=== PATIENT | female | born 1950 | race Caucasian/White ===

== ENCOUNTER 2020-11-13 12:48 | Emergency (ER) | payer MEDICARE, OTHER, MEDICAID, SELFPAY ==
[2020-11-13 13:34] VITALS: BP 167/64; PULSE 59; RESP 18; TEMP 36.8; O2SAT 98; BMI 37.7
--- NOTE | 2020-11-13 14:32 | HMH.EDUTC ---
[facility] Disposition Clinical Impression: Viral syndrome, Gastroenteritis, Exposure to COVID-19 virus Disposition: Home, Self-Care Condition on Discharge: Good Instructions: DI for Viral Syndrome, DI for COVID-19 (Suspected or Confirmed ), Preventing the Spread of Coronavirus Discharge Instructions Additional Instructions: Drink plenty of fluids. Take tylenol or ibuprofen for pain or fever. Take the medications as directed. Follow up with your regular doctor. GO TO THE ER FOR ANY WORSENING SYMPTOMS Quarantine until you know the results of your covid-19 test. If it is positive, the health department should call you and give you further instructions about your length of Quarantine and other things. Notify your school or workplace of your results and follow their instructions regarding return to work/school. Prescriptions: Ondansetron [Zofran 4mg ODT] 4 mg PO DAILYP PRN #12 tab PRN Reason: Nausea Transmission Status: Received by [facility] Referrals: Shayy Bess APRN [Primary Care Provider] - Time of Disposition: 15:11 Medical Decision Making - Medical Records Medical records reviewed: No: I reviewed the patient's medical records. - Darell Inquiry Pt receiving controlled substance: No Vital Signs: 11/13/20 13:34 11/13/20 15:20 Temperature 98.3 F 98.3 F Temperature Source Oral Pulse Rate 59 L Pulse Rate [Right Radial] 59 L Respiratory Rate 18 18 Blood Pressure 167/64 H Blood Pressure [Right Arm] 167/64 H Blood Pressure Mean [Right Arm] 98 Blood Pressure Source [Right Arm] Automatic Cuff Blood Pressure Position [Right Arm] Sitting 02 Sat by Pulse Oximetry 98 Oxygen Delivery Method Room Air - Lab Data Lab Results 11/13/20 21:07: Strep Scn Rapid Clinic Negative Orders (Tests/Meds): ORDERS Category Date Time Status Strep Screen Confirmation Stat Micro 11/13/20 21:07 Received [facility] HPI - General Stated complaint: Vomiting; dizziness Time Seen by Provider: 11/13/20 13:45 Mode of Arrival: Ambulatory Source of Information: Patient Limitations: No Limitations Description of Symptoms (Recalled from Triage Doc. by RN): C/O dizziness and vomiting since this am HEENT Symptoms (Recalled from RN notes): No Resp Symptoms (Recalled from RN notes): No Skin Symptoms (Recalled from RN notes): No MS Symptoms (Recalled from RN notes): No Functional Status (Recalled from RN notes): n/a - History of Present Illness Provider Complaint: She states that since this morning, she has had nausea and she has felt bad. She has vomited twice. She denies diarrhea, but she has had some abdominal cramping that feels like diarrhea might be ready to start. She denies any fever/chest pain/body aches. She denies any known sick contacts. She has been vaccinated against covid-19. - Related Data Previous Rx's Medication Instructions Recorded Ondansetron [Zofran 4mg ODT] 4 mg PO DAILYP PRN #12 tab 11/13/20 Allergies Allergy/AdvReac Type Severity Reaction Status Date / Time No Known Allergies Allergy Verified 11/13/20 13:38 - Worker's Comp Is this a Worker's Comp case?: No [facility] History - Hepatitis A Screen Drug use history?: No High risk sexual behaviors?: No History of sexually transmitted infection?: No Currently employed?: No Childcare worker?: No Do you have indoor plumbing?: Yes Do you have electricity?: Yes Attestation statement:: This patient has been screened for Hepatitis A risk factors. I have reviewed the patient's past medical history: Yes ROS Obtained: Yes All systems reviewed & no additional complaints - Constitutional Constitutional: Reports as per HPI - Eyes Eyes: Denies eye discharge - ENT Ears, Nose, Mouth, and Throat: Reports as per HPI - Cardiovascular Cardiovascular: Denies chest pain - Respiratory Respiratory: Reports chest congestion, Reports cough, Denies dyspnea, Denies stridor, Denies wheezing Physi
[2020-11-13 15:20] VITALS: BP 167/64; PULSE 59; RESP 18; TEMP 36.8; O2SAT 98
[2020-11-14 10:05] LABS: UTC Strep Screen (Rapid) Negative (Negative)
== END 2020-11-13 15:21 | disposition home or self-care (01) ==
PROVIDERS: Emergency Provider Nurse Practitioner Family; PCP Nurse Practitioner Family
DX: K52.9 Noninfective gastroenteritis and colitis, unspecified (principal); Z20.822 Contact with and (suspected) exposure to COVID-19
CPT/HCPCS: G0463; 87880; 99203; C9803; U0003; U0005

== ENCOUNTER 2024-11-12 15:40 | Outpatient (CLI) | payer MEDICARE, OTHER, SELFPAY ==
--- OUTSIDE RECORDS SUMMARY | 2024-11-13 12:32 | XMS_ITS | Clinical Summary ---
Author Organization Healthcare Address [address] [place] [address] Care Team Providers Care Chemistry Technical Officer Name Role Phone Hoa Cassidy APRN Primary Care Provider [phone] Allergies No known active allergies Medications calcium carbonate (Os-Star) 1250 (500 Ca) MG tablet Take 1 tablet daily 5 Active cholecalciferol (Vitamin D-3) 25 MCG (1000 UT) tablet 4 Active levothyroxine (Synthroid, Levoxyl) 25 MCG tablet TAKE 1 TABLET BY MOUTH EVERY MORNING ON AN EMPTY STOMACH 1 Active rosuvastatin (Crestor) 20 MG tablet 2 Active ciclopirox (Penlac) 8 % solution Apply topically 1 (one) time each day. To affected nails 6 mL 1 4 Active Additional Information Patient not taking.Reported on 05/16/2024 lisinopril 20 MG tablet 4 Active Adalimumab-adbm (Cyltezo, 2 Pen,) 40 MG/0.8ML Auto-injector KitIndications: Seropositive rheumatoid arthritis of multiple sites (CMS/HCC) Inject 40 mg under the skin every 14 (fourteen) days. 2 each 6 5 Active Active Problems Problem Noted Date Diagnosed Date Obesity (BMI 35.0-39.9 without comorbidity) 10/28 Seropositive rheumatoid arthritis of multiple si harleen 08/26/2021 Osteopenia 01/24/2018 Osteoarthritis 01/08/2014 Family History Medical History Relation Name Comments Asthma Other 1 Emphysema Other 2 Kidney failure Other 3 Relation Name Status Comments Other 1 Other 2 Other 3 Social History Tobacco Use Types Packs/Day Years Used Date Smoking Tobacco: Never Smokeless Tobacco: Never Tobacco Cessation:Counseling Given: Not Answered Alcohol Use Standard Drinks/Week Comments No 0 (1 standard drink = 0.6 oz pur e alcohol) PHQ-2 Answer Date Recorded Patient Health Questionnaire-2 Score 0 05/16/2024 PHQ-2A Answer Date Recorded Patient Health Questionnaire-2 Score 0 10/26/2022 Comments No Sex and Gender Information Value Date Recorded Sex Assigned at Not on file Legal Sex Female 7:38 PM EDT Gender Identity Not on file Sexual Orientation Not on file Last Filed Vital Signs Vital Sign Reading Time Taken Comments Blood Pressure 163/78 05/16/2024 9:20 AM EDT Pulse 69 05/16/2024 9:20 AM EDT Temperature 36.2 C (97.2 F) 05/16/2024 9:20 AM EDT Respiratory Rate 16 05/16/2024 9:20 AM EDT Oxygen Saturation 98% 05/16/2024 9:20 AM EDT Inhaled Oxygen Concentration - - Weight 86.5 kg (190 lb 11.2 oz) 05/16/2024 9:20 AM EDT Height 152.4 cm (5') 05/16/2024 9:20 AM EDT Body Mass Index 37.24 05/16/2024 9:20 AM EDT Plan of Treatment Upcoming Encounters Date Type Department Care Team (Late st Contact Info) Description 12/26/2024 11:00 AM EDT Office Visit [facility] Medicine Specialties [address] [place] [address] Shania Newberry MD [address] [phone] Health Maintenance Due Date Last Done Comments [facility]-Medicare Annual Wellness (AWV) 1950 [facility]-Infant/Child/Adol SDOH Screenings 1950 [facility]- SDOH Screenings 1970 [facility]-Adult SDOH Screenings 1970 [facility]-DTaP,Tdap,and Td Vaccines (1 - Tdap) 05/24/1971 CT Colonography 1997 Colonoscopy 1997 FIT 1997 FOBT 1997 Sigmoidoscopy 1997 [facility]-Breast Cancer Screening 2002 [facility]-Zoster Vaccines (1 of 2) 2002 [facility]-RSV Vaccine: 60+ Years or (1 - Risk 60-74 years 1-dose series) 2012 [facility]-Pneumococcal Vaccine: 50+ Years (2 of 2 - PCV) 12/14/2022 12/14/2021 [facility]-Bone Density Scan 04/03/2024 04/03/2023 , 12/15/2021, 10/30/2019 [id number] Vaccine ( season) 2024 12/10/2020, 06/18/2020, 05/21/2020 [facility]-Influenza Vaccine (#1) 2024 12/27/2022, [facility]-Depression Screening 05/16/2025 05/16/2024 FIT-DNA 10/31/2026 11/01/2023 [facility]-Colorectal Cancer Screening 10/31/2026 [facility]-Hepatitis C Screening Completed 03/18/2014 [facility]-Obesity Intervention Completed 025, 10/26/2023, 04/27/2023, Additional history exists HPV Vaccines Aged Out No longer eligi ble based on patient's age to complete this topic [facility]-HIB Vaccines Aged Out No longer e ligible based on patient's age to complete this topic [facility]-Hepatitis A Vaccines Aged Out No longer eligible based on patient's age to complete this topic [facility]-IPV Vaccines Aged Out No longer e ligible based on patient's age to complete this topic [facility]-Rotavirus Vaccines Aged Out No lo nger eligible based on patient's age to complete this topic Procedures Procedure Name Priority Date/Time Associated Diagnosis Comments DEXA BONE DENSITY Routine 12/15/2021 9:0 5 AM EDT Osteopenia, unspecified location At high risk for osteoporosis Osteoporosis, unspecified osteoporosis type, unspecified pathological fracture presence HEPATITIS C ANTIBODY W/REFLEX TO HCV QUANT PCR Routine 03/18/2014 11:19 AM EST from Last 3 Months or Most Recently Relevant to Health Maintenance Results * Dexa Bone Density (12/15/2021 9:05 AM EDT) Anatomical Region Laterality Modality L-spine Radiographic Lien ging Narrative 12/15/2021 1:43 PM EDT [facility] - Nephrology, Bone & Mineral Metabolism [address] [address], [place] [address] Patient Name: Prema Harris Raffi Patient Age: 71 y.o. Procedure Information: BMD measurement was performed using AppratsXA DXA System manufactured by [employer]: BMD of the axial skeleton was assessed. Ordering Provider: Silver Ca Date of exam: 12/15/21 Reason for Exam: Osteopenia Comparison Study: 07/18/17 Findings/Impression: Patient has osteopenia by WHO criteria. Based off FRAX risk assessment (11% for major osteoporotic fracture and 1.4% for hip fracture over the next 10 years) patient does not meet criteria for treatment. BMD has increased overall compared to 07/18/17. Recommend follow-up DXA in 2 years. Tisha Rodriguez MD IMG DXA PROCEDURES Final Resu lt * Hepatitis C Antibody (03/18/2014 11:19 AM EST) Hepatitis C Antibody NEGATIVE Reference Range: Negative SUNQUEST 03/18/2014 11:1 9 AM EST 03/18/2014 12:43 PM EST Historical Provider LAB BLOOD ORDERABLES Final R esult SUNQUEST from Last 3 Months or Most Recently Relevant to Health Maintenance [place] [address] [employer] Care Teams Chemistry Technical Officer Relationship Specialty Start Date End Date Hoa Cassidy APRN [id number] [place] [id number] PCP - General 12/15/21
== END 2024-11-12 23:59 | disposition home or self-care (01) ==
LOC: LAB.DROPOF 11-13 12:28
PROVIDERS: PCP Nurse Practitioner; Visit Provider Nurse Practitioner
DX: H92.12 Otorrhea, left ear (principal)
CPT/HCPCS: 87070